=== PATIENT | male | born 1970 | race Caucasian/White ===

== ENCOUNTER 2017-07-06 14:40 | Outpatient (CLI) | payer OTHER ==
--- NOTE | 2017-07-06 17:06 | MRI Report ---
EXAM: MRI LUMBAR SPINE WITHOUT CONTRAST EXAM DATE: 07/06/2017 03:55 PM. CLINICAL HISTORY: 14 YR BACK PAIN W/PMH OF DEGENERATIVE DISC DISEASE. COMPARISON: None. TECHNIQUE: Multiplanar, multisequence T1-weighted and fluid-sensitive sequences of the lumbar spine f rom T12 to S1 without contrast. Other: None. FINDINGS: Spinal Cord: The conus terminates at T12-L1. No signal abnormality in the visualized spinal cord. Alignment: Straightening of the normal lumbar lordosis. Grade 1 retrolisthesis of L5 on S1. Bone Marrow: Five [id number] lumbar vertebral bodies are assumed. Moderate endplate degenerative change, Schmorl's node formation, loss of disk height, disk desiccation seen at T10-T11 and L5-S1. T here is minimal to mild endplate degenerative changes, mild loss of disk height, and slight disk horace ccation seen through the remainder of the lumbar spine. There is heterogenous T1/T2 signal hyperintensity seen within the vertebral bodies of the lumbar spin e with no discrete mass or masslike edema. Findings likely represent marrow reconversion. No acute fracture. There are Modic type II changes seen at L5-S1. There is minimal endplate edema see n at L5-S1 likely degenerative. Disk Levels/Facets: T12-L1: Unremarkable. L1-L2: Unremarkable. L2-L3: Small posterior disk bulge, ligamentum flavum thickening, arthritic facet disease. No signific ant spinal canal stenosis. Mild right neural foraminal narrowing. L3-L4: Small posterior disk bulge, ligamentum flavum thickening, arthritic facet disease, prominent d orsal epidural fat. No significant spinal canal stenosis. Minimal bilateral neural foraminal narrowin g. L4-L5: Small posterior disk bulge, ligamentum flavum thickening, arthritic facet disease, and promine nt dorsal epidural fat. Minimal spinal canal stenosis. Minimal right and mild left neural foraminal n arrowing. L5-S1: Small posterior disk bulge. Bilateral facet disease. Effacement of the lateral recesses. Moder ate bilateral neuroforaminal narrowing. Musculature: Normal. No edema or fatty atrophy. Other: The visualized pelvic cavity is unremarkable. IMPRESSION: 1. Straightening of the normal lumbar lordosis. 2. Grade 1 retrolisthesis of L5 on S1. 3. Mild multilevel degenerative changes greatest at L5-S1. No high-grade areas of spinal canal stenos is seen. 4. There is moderate neuroforaminal narrowing involving bilateral neuroforamina L5-S1. Additional are as of mild neural foraminal narrowing as detailed above. Comment: The following findings are so common in adults without low back pain that while we report th eir presence, they must be interpreted with caution and in the context of the clinical situation. (Re olimpia Iyer et al, Spine 2001) Prevalence of findings in patients without low back pain: Disk degeneration (any evidence): 92% Disk desiccation/T2 signal loss: 83% Disk height loss: 56% Disk bulge: 64% Disk protrusion: 32% Annular tear/high intensity zone: 38% [facility] Referring Provider Line: [phone] SITE ID: [id number]
== END 2017-07-06 14:41 | disposition home or self-care (01) ==
LOC: DI 14:40
PROVIDERS: ATTEND General Practice
DX: M51.36 Other intervertebral disc degeneration, lumbar region (principal); M51.37 Other intervertebral disc degeneration, lumbosacral region; M47.896 Other spondylosis, lumbar region
CPT/HCPCS: 72148

== ENCOUNTER 2017-08-06 09:04 | Outpatient (CLI) | payer OTHER ==
[~2017-08-06 09:04] MED LIST: ALBUTEROL NEB 2.5 MG/3 ML INH ONE
== END 2017-08-06 09:05 | disposition home or self-care (01) ==
LOC: RT 09:04
PROVIDERS: ATTEND General Practice
DX: R06.00 Dyspnea, unspecified (principal)
CPT/HCPCS: 94060; J7613

== ENCOUNTER 2017-08-22 10:44 | Outpatient (CLI) | payer OTHER | END 2017-08-22 10:45 | disposition home or self-care (01) | LOC: SC 10:44 | PROVIDERS: ATTEND Internal Medicine Pulmonary Disease | DX: G47.30 Sleep apnea, unspecified (principal); G47.10 Hypersomnia, unspecified; G47.8 Other sleep disorders; R06.83 Snoring | CPT/HCPCS: 99203; 99212 ==

== ENCOUNTER 2017-09-24 20:24 | Outpatient (CLI) | payer OTHER | END 2017-09-24 20:25 | disposition home or self-care (01) | LOC: SC 20:24 | PROVIDERS: ATTEND Internal Medicine Pulmonary Disease | DX: G47.33 Obstructive sleep apnea (adult) (pediatric) (principal); G47.61 Periodic limb movement disorder | CPT/HCPCS: 95810 ==

== ENCOUNTER 2017-11-02 09:25 | Outpatient (CLI) | payer OTHER | END 2017-11-02 09:26 | disposition home or self-care (01) | LOC: SC 09:25 | PROVIDERS: ATTEND Nurse Practitioner Family | DX: G47.33 Obstructive sleep apnea (adult) (pediatric) (principal) | CPT/HCPCS: 99212; 99214 ==